=== PATIENT | male | born 1990 | race African-American/Black ===

== ENCOUNTER 2017-05-02 23:50 | Emergency (ER) | payer BC | END 2017-05-03 01:44 | disposition home or self-care (01) | LOC: ER 23:50 | DX: S49.92XA Unspecified injury of left shoulder and upper arm, initial encounter (principal); F17.200 Nicotine dependence, unspecified, uncomplicated; W17.89XA Other fall from one level to another, initial encounter; Y93.02 Activity, running | CPT/HCPCS: 73030-LT; 99283 ==